=== PATIENT | female | born 1995 | race Caucasian/White ===

== ENCOUNTER 2018-08-30 19:12 | Emergency (ER) | payer BC ==
[~2018-08-30] VITALS: Ht 195.6 cm; Wt 61.8 kg
--- NOTE | 2018-08-30 19:36 | NUR ---
PT PRESENTS TO ED W/ "SOMETHING WEIRD HAPPENING TO MY HEART" PT EKG IN TRIAGE SHOWED HR OF 199. PT APPEARS IN SVT. PT DENIES ANY HYPOTENSION SYMPTOMS/CP. STATES "I JUST FEEL TIRED WHEN I WALKED INTO THE ER." PT SKIN IS PINK WARM AND DRY. VAGAL MANEUVERS PERFORMED AND PT HR DECREASED TO 110-120'S RANGE W/ IMMEDIATE RELIEF FROM PT. ALL MONITORING STILL INTACT. VSS. CALL LIGHT WITHIN REACH. IV INITIATED W/ LABS DRAWN.
[2018-08-30 19:47] LABS: BASOPHILS # (AUTO) 0.05 x10^3/uL (0-0.1); BASOPHILS % (AUTO) 1 % (0-1); EOSINOPHILS # (AUTO) 0.09 x10^3/uL (0-0.4); EOSINOPHILS % (AUTO) 1 % (1-7); LYMPHOCYTES % (AUTO) 28 % (22-44); MD NO; MEAN CORPUSCULAR HEMOGLOBIN 30.4 pg (27.0-34.8); MEAN CORPUSCULAR HGB CONC 34.6 g/dL (32.4-35.8); MEAN CORPUSCULAR VOLUME 88.1 fL (80-100); MEAN PLATELET VOLUME 8.1 fL (7.4-10.4); MONOCYTES # (AUTO) 0.47 x10^3/uL (0.2-0.8); MONOCYTES % (AUTO) 6 % (2-9); NEUTROPHILS # (AUTO) 4.99 x10^3/uL (1.8-6.8); NEUTROPHILS % (AUTO) 64 % (42-75); PLATELET COUNT 342 x10^3/uL (130-400); RED CELL DISTRIBUTION WIDTH 12.7 % (9.6-15.2)
[2018-08-30 19:58] LABS: ALBUMIN 4.1 g/dL (3.4-5.0); ANION GAP 9 mmol/L (5-15); CALCIUM 8.6 mg/dL (8.5-10.1); CHLORIDE 108 mmol/L (98-107); CREATININE 1.08 mg/dL (0.55-1.02)
--- NOTE | 2018-08-30 20:13 | NUR ---
SBAR report received from [facility]. Pt resting on gurney, sinus tach noted at a rate of 106.
--- NOTE | 2018-08-30 20:30 | NUR ---
Pt resting on gurney, VS remain stable.
[2018-08-30 21:02] VITALS: BP 130/86
== END 2018-08-30 21:34 | disposition home or self-care (01) ==
LOC: ED 21:28
DX: I47.1 Supraventricular tachycardia (principal)
CPT/HCPCS: 36415; 71045; 80048; 82040; 84703; 85025; 93005; 99284